=== PATIENT | female | born 1950 | race Caucasian/White ===

== ENCOUNTER → 2016-04-19 | Outpatient (CLI) | payer SELFPAY ==
--- NOTE | 2016-04-19 17:49 | DI ---
History: Right hip pain. Three-view study. Prior examination: None. Findings: Degenerative changes L4-5 and L5-S1 principally on the left side. Pelvic ring is intact Limited acetabular coverage in size. Medially, near the fovea, there appears to be close proximity of the femoral head relative to the acetabulum with borderline protrusio on the right side. Similarly o n the left side, the bone is in close proximity to the acetabulum on the medial aspect. Superiorly, t he joint space is fairly well preserved. There are marginal osteophytes present on the right side mor e so than on the left. Impression: While there are bilateral degenerative changes comment more evident on the right side. Cl ose proximity of the femoral head relative to the acetabular margins medially. Limited acetabular cov erage seen bilaterally Fairly advanced degenerative change L4-5 L5-S1 with left-sided marginal osteophytes
--- NOTE | 2016-04-19 17:49 | DI ---
History: Low back and right hip pain. Procedure: Three-view study. Findings: Some degenerative changes noted at T11-T12 L3-L4 and L4-L5 particularly. Spondylosis and na rrowing present. Surgical clips right upper quadrant of the abdomen. Lumbar facet hypertrophy noted principally from L2 down to S1. Impression: Fairly dense lumbar facet hypertrophy from L2-S1. Advanced degenerative disc disease as mentioned above. Prior right upper quadrant abdominal surgery.
== END ==
LOC: ORTHO 11:10
PROVIDERS: ATTEND Orthopaedic Surgery
DX: M25.551 Pain in right hip (principal); M16.11 Unilateral primary osteoarthritis, right hip; M47.816 Spondylosis without myelopathy or radiculopathy, lumbar region
CPT/HCPCS: 72100; 73502

== ENCOUNTER → 2016-06-07 | Outpatient (CLI) | payer OTHER ==
[2016-06-07 13:00] LABS: BILIRUBIN,URINE NEGATIVE (NEG); CLARITY,URINE CLEAR (CLEAR); GLUCOSE, URINE (UA) NEGATIVE (NEG); LEUKOCYTE ESTERASE ,URINE NEGATIVE (NEG); NITRATE,URINE NEGATIVE (NEG); OCCULT BLOOD,URINE NEGATIVE (NEG); PROTEIN,URINE NEGATIVE (NEG); UROBILINOGEN,URINE 0.2 mg/dL (0.2)
[2016-06-07 13:23] LABS: URINE SAMPLE TYPE VOIDED SPECIMEN
[2016-06-07 13:25] LABS: RBC,URINE 0 /hpf; SQUAMOUS EPITHELIAL CELL,UR RARE; WBC,URINE 0
== END ==
LOC: LAB 12:12
PROVIDERS: ATTEND Orthopaedic Surgery
DX: M16.11 Unilateral primary osteoarthritis, right hip (principal)
CPT/HCPCS: 36415; 81001; 87641; 99213; G0463; 86850; 86900; 86901; 86922

== ENCOUNTER 2016-06-08 05:48 | Inpatient (IN) | payer OTHER ==
[2016-06-08] MEDS ORDERED: ceFAZolin Inj 2gm (Premix) 0 ML IV ONE (05:57)
[2016-06-08] MEDS ORDERED: Lactated Ringers 1,000 ML PRIMARY IV ONE ×3 (05:57→10:26)
[2016-06-08] MEDS ORDERED: LIDOCAINE W/ SODIUM BICARB 0.5 ML SYR ONE (05:57)
[2016-06-08] MEDS ORDERED: Sodium Chloride 0.9% 500 ML ONE ×2 (06:34→11:27)
[2016-06-08] MEDS ORDERED: Sodium Chloride 0.9% 2,000 ML ONE (06:34)
[2016-06-08] MEDS ORDERED: HEPARIN 10,000 UNIT/1 ML ONE (06:38)
[2016-06-08] MEDS ORDERED: Bacteriostatic NaCl Inj 30ml Vial ONE (06:38)
[2016-06-08] MEDS ORDERED: Sodium Chloride 0.9% vial 10 ML ONE (06:38)
[2016-06-08] MEDS ORDERED: Gentamicin Inj 40 MG/ML VIAL ONE (06:38)
[2016-06-08] MEDS ORDERED: BUPivacaine Liposome/PF (Exparel) Inj 20ml vial INFIL ONE (06:38)
[2016-06-08] MEDS ORDERED: Ketorolac Inj 30 MG, Morphine Inj 5 MG, BUPivacaine Inj 0.25% PF 150 MG SPLASH ONE ×6 (07:15→13:39)
[2016-06-08] MEDS ORDERED: MIDAZOLAM 5 MG/1 ML ONE (07:22)
[2016-06-08] MEDS ORDERED: fentaNYL Inj 250 MCG/5 ML VIAL ONE (07:23)
[2016-06-08] MEDS ORDERED: MORPHINE SULFATE/PF 10 MG/10 ML AMPULE ONE (07:23)
[2016-06-08] MEDS ORDERED: BUPIVACAINE SPINAL 7.5 MG/1 ML - 2 ML IV ONE (07:23)
[2016-06-08] MEDS ORDERED: Clindamycin 900mg (Premix) 50 ML IV ONE (07:32)
[2016-06-08] MEDS ORDERED: TRANEXAMIC ACID 1,000 MG / 10 ML VIAL ONE (08:00)
[2016-06-08] MEDS ORDERED: Sodium Chloride 0.9% 200 ML IV ONE (08:00)
[2016-06-08] MEDS ORDERED: HYDROmorphone 2 MG/1 ML IVP PRN ×2 (08:54→13:39)
[2016-06-08] MEDS ORDERED: NORMAL SALINE 10 ML SYRINGE FLUSH IVP PRN ×3 (08:54→13:39)
[2016-06-08] MEDS ORDERED: ONDANSETRON 4 MG/2 ML VIAL IVP PRN ×3 (08:54→13:39)
--- NOTE | 2016-06-08 08:54 | CRNA.PROCE ---
Central Neuraxis Block Placemt - - Type of Block: Subarachnoid, Epidural Reason for Block: Surgical Moniters Used During Block: EKG, SPO2, NIBP Sedation Used - Enter Amount Used in Comment Field: Midazolam (mg): Yes (3), Fentanyl (mcg): Yes (100) Skin Prep Used: ChloroPrep Draped: Yes Skin Infiltration - Enter Amount Used in Comment Field: 1% Xylocaine (mL): Yes ( skin wheal) Spinal Needle Used: 18 Hustead 80 mm Local Anesthetic - Enter Amount Used in Comment Field: 0.75 % Bupivacaine with Dextrose (ml): Yes (15mg), 1.5 % Xylocaine with Epinephrine 1:200,000 (mL): Yes (5ml) Additive Used - Enter Amount Used in Comment Field: Preservative Free Morphine ( mg): Yes (.15mg) Number of Centimeters Catheter Threaded: 4 Bioclusive Dressing Applied: Yes - - Additional Details: CSE 27GA spinal abraham passed through the 18GA touhy with pos CSF. 15mg of .75% bupivicaine and .15mg duramorph injected with birefringence noted
[2016-06-08] MEDS ORDERED: Lactated Ringers 1,000 ML PRIMARY IV SCH ×2 (09:00→13:39)
[2016-06-08] MEDS ORDERED: LIDOCAINE MPF 2% - 5 ML (20 MG/1 ML) ONE ×2 (09:29→10:52)
[2016-06-08] MEDS ORDERED: ePHEDrine Inj 50 MG/ML AMP ONE (09:44)
--- NOTE | 2016-06-08 13:34 | CONSULT ---
Consult Note - Consult Reason for Consult: PostOp Consulation : Ortho Requesting Physician: Magdalena Primary Care Provider: UNKNOWN UNKNOWN - History of Present Illness History of Present Illness: This is a very nice 66-year-old female with right hip pain was admitted by Dr. Nichols for right a [facility] hospitalist service was consulted for medical issues consistent of hypertension and hypothyroidism patient is now postop she has no complaints follows commands and is doing well Past Medical History Medical History: Hypertension, hypothyroidism Surgical History: Cholecystectomy, tonsillectomy, tubal ligation Tobacco Use: Never Smoker Substance Use Type: None Alcohol Use: None Review of Systems - Review of Systems All Systems: Reviewed & No Additional Complaints Except as Stated - Respiratory Respiratory: DENIES: Negative System Review, Cough, Sputum, Dyspnea At Rest, Dyspnea with Exertion, Pleuritic Pain, Hemoptysis, Wheezing, Other, See HPI - Gastrointestinal Gastrointestinal / Abdominal: DENIES: Negative System Review, Nausea, Vomiting, Diarrhea, Constipation, Abdominal Pain, Bloody Stool, Poor Appetite, Heartburn, Regurgitation, Bloating, Lactose Intolerance, Melena, Bright Red Blood Per Rectum, Other, See HPI - Genitourinary Genitourinary: DENIES: Negative System Review, Pain, Burning, Hematuria, Incontinence, Urgency, Hesitant Stream, Decreased Stream, Nocutria, Discharge, Sexual Dyfunction, Other, See HPI Medication / Allergies Home Medications: Home Medications Medication Instructions Recorded Confirmed Type Levothyroxine Sodium 1 tab PO DAILY tab 04/19/16 06/08/16 History Hydrochlorothiazide 1 cap PO DAILY cap 06/07/16 06/08/16 History Allergies/Adverse Reactions: Allergies Allergy/AdvReac Type Severity Reaction Status Date / Time cephalexin Allergy Intermediate RASH Verified 06/08/16 06:24 Sulfa (Sulfonamide Allergy Intermediate RASH Verified 06/08/16 06:24 Antibiotics) shell fish Allergy Severe Anaphylaxis Uncoded 04/19/16 10:32 Exam - Vitals Vital Signs: Vital Signs Temperature 97.3 F Temperature Source Temporal Artery Scan Pulse Rate 74 Respiratory Rate 16 Blood Pressure 146/90 Oxygen Delivery Method Room Air Height 5 ft 9 in Weight 87.09 kg - General General Appearance: POSITIVE: No Acute Distress, Cooperative - Head Head Exam: POSITIVE: Normocephalic, Atraumatic - Eye Eye Exam: POSITIVE: PERRL, EOMI - Neck Neck Exam: POSITIVE: Normal Inspection - Respiratory Respiratory Exam: POSITIVE: Clear to Auscultation - Bilaterally, Breathing Non Labored, Normal To Percussion - Cardiovascular Cardiovascular Exam: POSITIVE: RRR, No Murmur, No Clicks, No Gallops - GI/Abdominal GI/Abdominal Exam: POSITIVE: Normal Bowel Sounds, Non Tender, Soft - Extremities Additional Extremities Exam Details: Postop right hip replacement - Neurological Neurological Exam: POSITIVE: Alert, Oriented x 3, CN II-XII Intact Assessment and Plan - Patient Problems (1) Hypertension Current Visit: Yes Status: Acute Comment: Hold hydrochlorothiazide at present check labs (2) Hypothyroidism Current Visit: Yes Status: Acute Comment: Continue replacement (3) Status post right hip replacement Current Visit: Yes Status: Acute Comment: The further Dr. Nichols for anticoagulation and pain control and PT OT orders - Assessment / Plan Additional Assessment/Plan Details: case discussed with family and nursing
[2016-06-08] MEDS ORDERED: Prochlorperazine Tab 10 MG TAB PO PRN (13:39)
[2016-06-08] MEDS ORDERED: Ondansetron ODT Tab 8 MG TAB PO PRN (13:39)
[2016-06-08] MEDS ORDERED: MORPHINE SULFATE 2 MG/1 ML IVP PRN (13:39)
[2016-06-08] MEDS ORDERED: BISACODYL 10 MG SUPPOSITORY RECTAL PRN (13:39)
[2016-06-08] MEDS ORDERED: CALCIUM CARBONATE 500 MG (TUMS) CHEWABLE TABLET PO PRN (13:39)
[2016-06-08] MEDS ORDERED: IBUPROFEN 400 MG TABLET PO PRN (13:39)
[2016-06-08] MEDS ORDERED: diphenhydrAMINE 25 MG CAPSULE PO PRN (13:39)
[2016-06-08] MEDS ORDERED: BISACODYL 5 MG TABLET PO PRN (13:39)
[2016-06-08] MEDS ORDERED: ACETAMINOPHEN 325 MG TABLET PO PRN (13:39)
[2016-06-08] MEDS ORDERED: MAG HYDROX/AL HYDROX/SIMETH 30 ML SUSP PO PRN (13:39)
--- NOTE | 2016-06-08 13:47 | EKG ---
[address] [address] Measurements Intervals [place] Rate: 66 P: 14 NE: 176 QRS: 73 QRSD: 102 T: 39 QT: 432 QTc: 445 Interpretive Statements SINUS RHYTHM NONSPECIFIC T-WAVE ABNORMALITY No previous ECG available for comparison Electronically Signed On 06-08-16 15:37:19 MST by Jose Rolon [email or web address]
[2016-06-08] MEDS ORDERED: MORPHINE SULFATE 4 MG/1 ML IV PRN (14:06)
[2016-06-08] MEDS ORDERED: MORPHINE SULFATE 10 MG/1 ML IV PRN (14:06)
[2016-06-08] MEDS ORDERED: MORPHINE SULFATE 2 MG/1 ML IV PRN (14:06)
[2016-06-08] MEDS: Lactated Ringers 1,000 ML PRIMARY IV SCH (15:20)
--- NOTE | 2016-06-08 16:45 | DI ---
AP PELVIS AND RIGHT HIP, 06/08/2016 11:31 AM: Clinical History: Status post right total hip replacement. Osteoarthritis. Previous Exam: 04/19/2016. An AP pelvis with AP and lateral views of the replaced hip are submitted. The patient is status post right total hip replacement. The prosthetic joint articulates normally. A drain tube is in place. Reading: Status post right total hip replacement. The prosthetic joint articulates normally.
[2016-06-08] MEDS: Clindamycin 900mg (Premix) 900 MG in Dextrose 1 BAG IV SCH ×2 (16:50→21:37)
[2016-06-08 17:49] LABS: BASOPHILS # (AUTO) 0.02 10*3/UL; BASOPHILS % (AUTO) 0.2 % (0-1); EOSINOPHILS % (AUTO) 0 % (0-8); HEMATOCRIT 33.4 % (37.0-47.0); HEMOGLOBIN 10.7 g/dL (12.0-16.0); IMM GRAN % (AUTO) 0.3 % (0-5); IMM GRAN# (AUTO) 0.03 10*3/UL; LYMPHOCYTES # (AUTO) 0.62 10*3/uL; LYMPHOCYTES % (AUTO) 6.7 % (10-50); MEAN CORPUSCULAR HEMOGLOBIN 28.8 PG (27-31); MONOCYTES # (AUTO) 0.72 10*3/UL (0.3-0.8); MONOCYTES % (AUTO) 7.8 % (5-15); NEUTROPHILS # (AUTO) 7.87 10*3/UL; RDW COEFFICIENT OF VARIATION 14.5 % (11.5-14.5); RED BLOOD COUNT 3.72 10^6/uL (4.20-5.40); WHITE BLOOD COUNT 9.26 10^3/uL (4.8-10.8)
--- NOTE | 2016-06-08 17:51 | EKG ---
[address] [address] Measurements Intervals [place] Rate: 68 P: 27 RI: 170 QRS: 68 QRSD: 97 T: 88 QT: 430 QTc: 447 Interpretive Statements SINUS RHYTHM NONSPECIFIC ST & T-WAVE ABNORMALITY Compared to ECG 06/08/2016 13:47:48 No significant changes Electronically Signed On 06-09-16 14:00:34 MST by Jose Rolon [email or web address]
[2016-06-08 17:58] LABS: ASPARTATE AMINO TRANSFERASE 49 IU/L (8-39); BILIRUBIN,TOTAL 0.8 mg/dL (0.3-1.2); BLOOD UREA NITROGEN 14 mg/dL (7-22); BUN/CREATININE RATIO 23.33 (6-20); CALCIUM 8.5 mg/dL (8.7-10.7); CHLORIDE 104 meq/L (98-112); CREATININE 0.6 mg/dL (0.50-1.20); EST GLOMERULAR FILTRATION > 60 (>60 ml/min/1.73m(2)); GLUCOSE 115 mg/dL (78-110); SODIUM 139 meq/L (135-145); TOTAL PROTEIN 5.8 g/dL (6.1-8.0)
[2016-06-08 17:59] LABS: PLATELET MORPHOLOGY COMMENT NORMAL MORPHOLOGY (NORM)
--- NOTE | 2016-06-08 19:20 | ORTHO.PROG ---
Last Taken Vital Signs: Vital Signs - Last Taken Temperature 97.2 F 06/08/16 16:01 Pulse Rate 73 06/08/16 16:01 Respiratory Rate 18 06/08/16 16:01 Blood Pressure 149/79 06/08/16 16:01 Pulse Ox 100 06/08/16 16:01 Subjective: Patient notes that her pain is well-controlled and stood up with therapy today. Objective: Intake and Output - 8hrs 06/07/16 06/08/16 06/08/16 06/08/16 21:59 05:59 13:59 21:59 Intake: IV 5050 305 Intake Oral Amount 300 OrthoPat 100 Output: Output, Drainage Amount 80 RIGHT HIP 80 Output, Urinary Catheter 200 Amount Output, Urine Amount 145 Output, Estimated Blood 350 Loss Amount Other: Percent Meal Consumed 100% Weight 87.09 kg Weight Measurement Method Standing Scale Vital Signs (24 hrs) Temp Pulse Pulse Resp BP BP Pulse Ox 06/08/16 16:01 97.2 F 73 18 149/79 100 06/08/16 15:30 97.4 F 69 17 143/81 97 06/08/16 15:07 96 06/08/16 15:01 97.1 F 69 18 153/77 94 06/08/16 14:27 97.5 F 76 18 156/98 98 06/08/16 14:15 97.4 F 71 16 148/84 98 06/08/16 14:00 96.6 F L 72 18 162/80 97 06/08/16 13:45 96.6 F L 72 20 167/87 97 06/08/16 13:40 97.3 F 70 16 167/90 96 06/08/16 13:30 97.3 F 70 16 167/90 96 06/08/16 13:15 96.9 F 63 12 166/80 06/08/16 13:05 65 25 H 151/78 06/08/16 12:50 64 13 143/74 06/08/16 12:45 68 25 H 159/78 06/08/16 12:35 97.1 F 67 17 152/87 06/08/16 12:20 59 L 14 118/87 06/08/16 12:15 66 12 124/71 06/08/16 12:10 96.8 F 62 16 104/63 06/08/16 12:05 64 16 110/69 06/08/16 12:00 62 16 106/64 06/08/16 11:55 69 27 H 111/66 06/08/16 11:49 97.3 F 64 9 L 99/66 06/08/16 06:35 97.3 F 74 16 146/90 Dressing is clean and dry drain is in place and the suction dressing is also in place. Neurovascularly intact with good motor of the foot and ankle and toes. Good pulses and brisk refill Assessment: Right anterior total hip replacement doing well Plan: Patient will work with physical therapy and occupational therapy Anticoagulation with Xarelto and pneumatic sequentials Pain control both oral and IV.
[2016-06-08] MEDS: DOCUSATE 100 MG CAPSULE PO SCH (21:38)
[2016-06-09] MEDS: HYDROcodone-APAP 7.5 MG-325 MG TABLET PO PRN ×4 (01:13→21:48)
[2016-06-09] MEDS: Lactated Ringers 1,000 ML PRIMARY IV SCH (02:51)
[2016-06-09] MEDS: Clindamycin 900mg (Premix) 900 MG in Dextrose 1 BAG IV SCH (04:15)
[2016-06-09] MEDS: LEVOTHYROXINE 75 MCG TABLET PO SCH ×2 (05:30→05:34)
[2016-06-09 06:10] LABS: BASOPHILS # (AUTO) 0.01 10*3/UL; BASOPHILS % (AUTO) 0.2 % (0-1); EOSINOPHILS % (AUTO) 0.7 % (0-8); HEMATOCRIT 29.7 % (37.0-47.0); HEMOGLOBIN 9.4 g/dL (12.0-16.0); IMM GRAN % (AUTO) 0 % (0-5); IMM GRAN# (AUTO) 0 10*3/UL; LYMPHOCYTES # (AUTO) 0.96 10*3/uL; LYMPHOCYTES % (AUTO) 21.1 % (10-50); MEAN CORPUSCULAR HEMOGLOBIN 28.5 PG (27-31); MEAN CORPUSCULAR HGB CONC 31.6 g/dL (33-37); MEAN PLATELET VOLUME 10.5 FL (7.4-12.2); MONOCYTES # (AUTO) 0.69 10*3/UL (0.3-0.8); MONOCYTES % (AUTO) 15.2 % (5-15); NEUTROPHILS # (AUTO) 2.86 10*3/UL; NEUTROPHILS % (AUTO) 62.8 % (50-80); RDW COEFFICIENT OF VARIATION 14.6 % (11.5-14.5); WHITE BLOOD COUNT 4.55 10^3/uL (4.8-10.8)
[2016-06-09 06:12] LABS: PLATELET MORPHOLOGY COMMENT NORMAL MORPHOLOGY (NORM)
[2016-06-09 06:24] LABS: ASPARTATE AMINO TRANSFERASE 32 IU/L (8-39); BILIRUBIN,TOTAL 0.8 mg/dL (0.3-1.2); BLOOD UREA NITROGEN 11 mg/dL (7-22); BUN/CREATININE RATIO 18.33 (6-20); CALCIUM 8.1 mg/dL (8.7-10.7); CHLORIDE 103 meq/L (98-112); CREATININE 0.6 mg/dL (0.50-1.20); EST GLOMERULAR FILTRATION > 60 (>60 ml/min/1.73m(2)); GLUCOSE 89 mg/dL (78-110); SODIUM 136 meq/L (135-145); TOTAL PROTEIN 5.3 g/dL (6.1-8.0)
--- NOTE | 2016-06-09 07:47 | ORTHO.PROG ---
Last Taken Vital Signs: Vital Signs - Last Taken Temperature 98.4 F 06/09/16 04:32 Pulse Rate 76 06/09/16 04:32 Respiratory Rate 18 06/09/16 04:32 Blood Pressure 140/46 06/09/16 04:32 Pulse Ox 95 06/09/16 04:32 Subjective: Patient is doing well this morning and is ready to start physical therapy. Objective: Intake and Output - 8hrs 06/08/16 06/08/16 06/09/16 06/09/16 13:59 21:59 05:59 13:59 Intake: IV 5050 305 1254 Intake Oral Amount 600 750 OrthoPat 100 Output: Output, Drainage Amount 80 40 RIGHT HIP 80 40 Output, Urinary Catheter 200 650 Amount Output, Urine Amount 145 Output, Estimated Blood 350 Loss Amount Other: Percent Meal Consumed 100% Weight 87.09 kg Weight Measurement Method Standing Scale Vital Signs (24 hrs) Temp Pulse Pulse Pulse Resp BP BP 06/09/16 07:43 97.9 F 79 16 117/60 06/09/16 04:32 98.4 F 76 18 140/46 06/09/16 00:21 97.5 F 65 16 145/68 06/08/16 20:37 98.0 F 61 18 136/62 06/08/16 16:01 97.2 F 73 18 06/08/16 15:30 97.4 F 69 17 06/08/16 15:07 06/08/16 15:01 97.1 F 69 18 06/08/16 14:27 97.5 F 76 18 06/08/16 14:15 97.4 F 71 16 06/08/16 14:00 96.6 F L 72 18 06/08/16 13:45 96.6 F L 72 20 06/08/16 13:40 97.3 F 70 16 06/08/16 13:30 97.3 F 70 16 06/08/16 13:15 96.9 F 63 12 166/80 06/08/16 13:05 65 25 H 151/78 06/08/16 12:50 64 13 143/74 06/08/16 12:45 68 25 H 159/78 06/08/16 12:35 97.1 F 67 17 152/87 06/08/16 12:20 59 L 14 118/87 06/08/16 12:15 66 12 124/71 02/28/17 12:10 96.8 F 62 16 104/63 06/08/16 12:05 64 16 110/69 06/08/16 12:00 62 16 106/64 06/08/16 11:55 69 27 H 111/66 06/08/16 11:49 97.3 F 64 9 L 99/66 BP Pulse Ox 06/09/16 07:43 92 06/09/16 04:32 95 06/09/16 00:21 98 06/08/16 20:37 98 06/08/16 16:01 149/79 100 06/08/16 15:30 143/81 97 06/08/16 15:07 96 06/08/16 15:01 153/77 94 06/08/16 14:27 156/98 98 06/08/16 14:15 148/84 98 06/08/16 14:00 162/80 97 06/08/16 13:45 167/87 97 06/08/16 13:40 167/90 96 06/08/16 13:30 167/90 96 06/08/16 13:15 06/08/16 13:05 06/08/16 12:50 06/08/16 12:45 06/08/16 12:35 06/08/16 12:20 06/08/16 12:15 06/08/16 12:10 06/08/16 12:05 06/08/16 12:00 06/08/16 11:55 06/08/16 11:49 Laboratory Results 06/08/16 06/08/16 06/09/16 Range/Units 13:58 17:35 05:49 WBC 9.26 4.55 L (4.8-10.8) 10^3/uL RBC 3.72 L 3.30 L (4.20-5.40) 10^6/uL Hgb 10.7 L 9.4 L (12.0-16.0) g/dL Hct 33.4 L 29.7 L (37.0-47.0) % MCV 89.8 90.0 (81-99) FL MCH 28.8 28.5 (27-31) PG MCHC 32.0 L 31.6 L (33-37) g/dL RDW Std Deviation 46.2 46.5 (39-50) fL RDW Coeff of Emmy 14.5 14.6 H (11.5-14.5) % Plt Count 185 160 (140-350) 10*3/uL MPV 10.0 10.5 (7.4-12.2) FL Immature Gran % (Auto) 0.3 0 (0-5) % Neut % (Auto) 85.0 H 62.8 (50-80) % Lymph % (Auto) 6.7 L 21.1 (10-50) % [place] % (Auto) 7.8 15.2 H (5-15) % Eos % (Auto) 0 0.7 (0-8) % Baso % (Auto) 0.2 0.2 (0-1) % Immature Gran # (Auto) 0.03 0 10*3/UL Neut # (Auto) 7.87 2.86 10*3/UL Lymph # (Auto) 0.62 0.96 10*3/uL [place] # (Auto) 0.72 0.69 (0.3-0.8) 10*3/UL Eos # (Auto) 0 0.03 10*3/UL Baso # (Auto) 0.02 0.01 10*3/UL WBC Morphology Comment Normal morphology Normal morphology (NORM) Plt Morphology Comment Normal morphology Normal morphology (NORM) RBC Morph Comment Normal morphology Normal morphology (NORM) Sodium 139 136 (135-145) meq/L Potassium 4.0 4.0 (3.8-5.2) meq/L Chloride 104 103 (98-112) meq/L Carbon Dioxide 26 27 (23-33) meq/L Anion Gap 9 6 (5-20) BUN 14 11 (7-22) mg/dL Creatinine 0.6 0.6 (0.50-1.20) mg/dL Estimated GFR > 60 > 60 (>60 ml/min/1.73m(2)) BUN/Creatinine Ratio 23.33 H 18.33 (6-20) Glucose 115 H 89 (78-110) mg/dL Calculated Osmolality 289.0 279.0 (267-292) mOsm/kg Calcium 8.5 L 8.1 L (8.7-10.7) mg/dL Total Bilirubin 0.8 0.8 (0.3-1.2) mg/dL AST 49 H 32 (8-39) IU/L ALT 40 35 (9-52) IU/L Alkaline Phosphatase 71 55 (38-126) IU/L Troponin I < 0.012 (< 0.040) ng/mL Total Protein 5.8 L 5.3 L (6.1-8.0) g/dL Albumin 3.3 L 2.8 L (3.5-4.8) g/dL Globulin 2.5 2.5 (2.50-4.10) g/dL Albumin/Globulin Ratio 1.30 1.10 L (1.3-2.0) mg/g Patient's motor and sensory exam is intact there is no marked swelling the drain was removed dressing is in place. Patient with good pulses brisk refill good motion foot and ankle toes. Assessment: Right total hip replacement Anemia Plan: Pain control both oral and IV available DVT prophylaxis we will be using other oral medications Xarelto Anemia we have autologous units available if needed. We'll continue to follow her along.
[2016-06-09] MEDS ORDERED: Rivaroxaban Tab 10 MG TAB PO SCH (09:00)
[2016-06-09] MEDS ORDERED: HYDROCHLOROTHIAZIDE 12.5 MG CAPSULE PO SCH (09:00)
[2016-06-09] MEDS: DOCUSATE 100 MG CAPSULE PO SCH ×2 (09:34→21:48)
--- NOTE | 2016-06-09 09:49 | CRNA.PROGR ---
Anesthesia Note Anesthesia Progress Note: Post Anesthesia Note Pt is sitting up in bed, states that her pain is well under control. She has been tolerating a regular diet. Had one episode of N/V one time yesterday. She denies any residual problems with the SAB/Epidural. Current VSS. Vital Signs (Last 8 hours) Temp Pulse Resp BP Pulse Ox 06/09/16 07:43 97.9 F 79 16 117/60 92 06/09/16 04:32 98.4 F 76 18 140/46 95
[2016-06-09] MEDS ORDERED: Rivaroxaban Tab 10 MG TAB PO ONE (10:30)
--- NOTE | 2016-06-09 11:34 | PDOC(PROG) ---
Interval History: Patient has no complaints eating well no chest pain nausea or vomiting Objective : Data - Labs CBC and BMP: 06/09/16 05:49 06/09/16 05:49 Labs - Last 24 Hours: Laboratory Results 06/08/16 06/08/16 06/09/16 Range/Units 13:58 17:35 05:49 WBC 9.26 4.55 L (4.8-10.8) 10^3/uL RBC 3.72 L 3.30 L (4.20-5.40) 10^6/uL Hgb 10.7 L 9.4 L (12.0-16.0) g/dL Hct 33.4 L 29.7 L (37.0-47.0) % MCV 89.8 90.0 (81-99) FL MCH 28.8 28.5 (27-31) PG MCHC 32.0 L 31.6 L (33-37) g/dL RDW Std Deviation 46.2 46.5 (39-50) fL RDW Coeff of Emmy 14.5 14.6 H (11.5-14.5) % Plt Count 185 160 (140-350) 10*3/uL MPV 10.0 10.5 (7.4-12.2) FL Immature Gran % (Auto) 0.3 0 (0-5) % Neut % (Auto) 85.0 H 62.8 (50-80) % Lymph % (Auto) 6.7 L 21.1 (10-50) % [place] % (Auto) 7.8 15.2 H (5-15) % Eos % (Auto) 0 0.7 (0-8) % Baso % (Auto) 0.2 0.2 (0-1) % Immature Gran # (Auto) 0.03 0 10*3/UL Neut # (Auto) 7.87 2.86 10*3/UL Lymph # (Auto) 0.62 0.96 10*3/uL [place] # (Auto) 0.72 0.69 (0.3-0.8) 10*3/UL Eos # (Auto) 0 0.03 10*3/UL Baso # (Auto) 0.02 0.01 10*3/UL WBC Morphology Comment Normal morphology Normal morphology (NORM) Plt Morphology Comment Normal morphology Normal morphology (NORM) RBC Morph Comment Normal morphology Normal morphology (NORM) Sodium 139 136 (135-145) meq/L Potassium 4.0 4.0 (3.8-5.2) meq/L Chloride 104 103 (98-112) meq/L Carbon Dioxide 26 27 (23-33) meq/L Anion Gap 9 6 (5-20) BUN 14 11 (7-22) mg/dL Creatinine 0.6 0.6 (0.50-1.20) mg/dL Estimated GFR > 60 > 60 (>60 ml/min/1.73m(2)) BUN/Creatinine Ratio 23.33 H 18.33 (6-20) Glucose 115 H 89 (78-110) mg/dL Calculated Osmolality 289.0 279.0 (267-292) mOsm/kg Calcium 8.5 L 8.1 L (8.7-10.7) mg/dL Total Bilirubin 0.8 0.8 (0.3-1.2) mg/dL AST 49 H 32 (8-39) IU/L ALT 40 35 (9-52) IU/L Alkaline Phosphatase 71 55 (38-126) IU/L Troponin I < 0.012 < 0.012 (< 0.040) ng/mL Total Protein 5.8 L 5.3 L (6.1-8.0) g/dL Albumin 3.3 L 2.8 L (3.5-4.8) g/dL Globulin 2.5 2.5 (2.50-4.10) g/dL Albumin/Globulin Ratio 1.30 1.10 L (1.3-2.0) mg/g Objective : Exam - General General Appearance: Cooperative - Neck Neck Exam: Normal Inspection - Respiratory Respiratory Exam: Clear to Auscultation - Bilaterally, Breathing Non Labored, Normal To Percussion - Cardiovascular Cardiovascular Exam: RRR, No Murmur, No Clicks, No Gallops - GI/Abdominal GI/Abdominal Exam: Normal Bowel Sounds, Non Tender, Non Distended, Soft - Extremities Extremities Exam: No Clubbing Present, No Edema Present, No Cyanosis Present - Neurological Neurological Exam: Alert, Oriented x 3, CN II-XII Intact, No Facial Droop Assessment and Plan - Patient Problems (1) Hypertension Current Visit: Yes Status: Acute Comment: Stable 117/60 continue to hold hydrochlorothiazide (2) Hypothyroidism Current Visit: Yes Status: Acute Comment: Continue replacement (3) Status post right hip replacement Current Visit: Yes Status: Acute Comment: Defer Dr. Nichols patient is onxarelto
--- NOTE | 2016-06-09 16:34 | PT.PROG ---
Progress Note Progress Note: S. Patient stated that she is feeling good this morning and would like to go for a walk. O. Patient ambulated 120 feet to the end of the peter and back to her room, She was left in her chair with alarm and call light. A. Patient tolerated ambulation very well and reported that she has very little pain at this time. Patient would continue to benefit from skilled therapy at this time. P. Continue POC.
--- NOTE | 2016-06-09 17:02 | PT.PROG ---
Progress Note Progress Note: S. Patient stated that she is a little stiff this afternoon after sitting in the chair. O. Patient ambulated 175 feet to the therapy gym where she had heat and performed exercises in the form of; heel slides, quad sets, glut sets, ankle pumps, short arc quads, seated long arc quads, sit to stands all x 10 patient ambulated 30 feet then was wheeled to her room where she was left in a chair with alarm and call light. A. Patient tolerated activity very well this afternoon, she required mod assist with bed mobility and transfers however was able to perform all exercises. Patient would continue to benefit from skilled therapy. P. Continue POC.
[2016-06-10] MEDS: HYDROcodone-APAP 7.5 MG-325 MG TABLET PO PRN ×4 (03:42→20:21)
[2016-06-10] MEDS: LEVOTHYROXINE 150 MCG PO SCH (05:43)
[2016-06-10 06:27] LABS: HEMATOCRIT 32.4 % (37.0-47.0); HEMOGLOBIN 10.5 g/dL (12.0-16.0); MEAN CORPUSCULAR HEMOGLOBIN 29.1 PG (27-31); MEAN CORPUSCULAR HGB CONC 32.4 g/dL (33-37); MEAN PLATELET VOLUME 10.3 FL (7.4-12.2); RDW COEFFICIENT OF VARIATION 14.7 % (11.5-14.5); RED BLOOD COUNT 3.61 10^6/uL (4.20-5.40); WHITE BLOOD COUNT 6.23 10^3/uL (4.8-10.8)
[2016-06-10 06:36] LABS: BLOOD UREA NITROGEN 7 mg/dL (7-22); CALCIUM 8.9 mg/dL (8.7-10.7); CHLORIDE 103 meq/L (98-112); CREATININE 0.7 mg/dL (0.50-1.20); EST GLOMERULAR FILTRATION > 60 (>60 ml/min/1.73m(2)); GLUCOSE 98 mg/dL (78-110); POTASSIUM 3.8 meq/L (3.8-5.2); SODIUM 139 meq/L (135-145)
[2016-06-10] MEDS: HYDROCHLOROTHIAZIDE 12.5 MG PO SCH (07:21)
[2016-06-10] MEDS: Rivaroxaban Tab 10 MG TAB PO SCH (08:03)
[2016-06-10] MEDS: DOCUSATE 100 MG CAPSULE PO SCH ×2 (08:03→20:21)
--- NOTE | 2016-06-10 10:58 | PDOC(PROG) ---
Interval History: Patient is doing great and has no complaints specifically no chest pain nausea or vomiting or shortness of breath she is doing pretty well with physical therapy she tells me Objective : Data - Labs CBC and BMP: 06/10/16 05:54 06/10/16 05:54 Labs - Last 24 Hours: Laboratory Results 06/10/16 Range/Units 05:54 WBC 6.23 (4.8-10.8) 10^3/uL RBC 3.61 L (4.20-5.40) 10^6/uL Hgb 10.5 L (12.0-16.0) g/dL Hct 32.4 L (37.0-47.0) % MCV 89.8 (81-99) FL MCH 29.1 (27-31) PG MCHC 32.4 L (33-37) g/dL RDW Std Deviation 46.8 (39-50) fL RDW Coeff of Emmy 14.7 H (11.5-14.5) % Plt Count 203 (140-350) 10*3/uL MPV 10.3 (7.4-12.2) FL Sodium 139 (135-145) meq/L Potassium 3.8 (3.8-5.2) meq/L Chloride 103 (98-112) meq/L Carbon Dioxide 28 (23-33) meq/L Anion Gap 8 (5-20) BUN 7 (7-22) mg/dL Creatinine 0.7 (0.50-1.20) mg/dL Estimated GFR > 60 (>60 ml/min/1.73m(2)) BUN/Creatinine Ratio 10.00 (6-20) Glucose 98 (78-110) mg/dL Calculated Osmolality 285.0 (267-292) mOsm/kg Calcium 8.9 (8.7-10.7) mg/dL Objective : Exam - Respiratory Respiratory Exam: Clear to Auscultation - Bilaterally, Breathing Non Labored, Normal To Percussion - Cardiovascular Cardiovascular Exam: RRR, No Murmur, No Clicks - GI/Abdominal GI/Abdominal Exam: Non Tender, Non Distended, Soft - Extremities Extremities Exam: No Clubbing Present, No Edema Present, No Cyanosis Present - Neurological Neurological Exam: Alert, Oriented x 3, CN II-XII Intact - Psychiatric Psychiatric Exam: Normal Affect, Normal Mood Assessment and Plan - Patient Problems (1) Hypertension Current Visit: Yes Status: Acute Comment: Stable at present time may resume her home meds (2) Hypothyroidism Current Visit: Yes Status: Acute Comment: Continue replacement (3) Status post right hip replacement Current Visit: Yes Status: Acute Comment: For Dr. Nichols for anticoagulation and postop instructions
--- NOTE | 2016-06-10 14:01 | ORTHO.PROG ---
Last Taken Vital Signs: Vital Signs - Last Taken Temperature 97.8 F 06/10/16 12:51 Pulse Rate 86 06/10/16 12:51 Respiratory Rate 18 06/10/16 12:51 Blood Pressure 123/69 06/10/16 12:51 Pulse Ox 94 06/10/16 12:51 Subjective: The patient is doing well therapy what well she did stairs partially is going back this afternoon to work him more. Objective: Examination shows that the leg is clean and dry dressings in place the PREVINA suction dressing is working well and she has normal motor and sensory exam distally, very mild amount of swelling. No calf, popliteal, adductor hiatus pain. Intake and Output - 8hrs 06/09/16 06/10/16 06/10/16 06/10/16 21:59 05:59 13:59 21:59 Intake: Intake Oral Amount 700 500 980 Output: Output, Urinary Catheter 1150 Amount Output, Urine Amount 675 1125 950 Other: Percent Meal Consumed 100% Weight 90.174 kg Weight Measurement Method Standing Scale Laboratory Results 06/10/16 Range/Units 05:54 WBC 6.23 (4.8-10.8) 10^3/uL RBC 3.61 L (4.20-5.40) 10^6/uL Hgb 10.5 L (12.0-16.0) g/dL Hct 32.4 L (37.0-47.0) % MCV 89.8 (81-99) FL MCH 29.1 (27-31) PG MCHC 32.4 L (33-37) g/dL RDW Std Deviation 46.8 (39-50) fL RDW Coeff of Emmy 14.7 H (11.5-14.5) % Plt Count 203 (140-350) 10*3/uL MPV 10.3 (7.4-12.2) FL Sodium 139 (135-145) meq/L Potassium 3.8 (3.8-5.2) meq/L Chloride 103 (98-112) meq/L Carbon Dioxide 28 (23-33) meq/L Anion Gap 8 (5-20) BUN 7 (7-22) mg/dL Creatinine 0.7 (0.50-1.20) mg/dL Estimated GFR > 60 (>60 ml/min/1.73m(2)) BUN/Creatinine Ratio 10.00 (6-20) Glucose 98 (78-110) mg/dL Calculated Osmolality 285.0 (267-292) mOsm/kg Calcium 8.9 (8.7-10.7) mg/dL Vital Signs (24 hrs) Temp Pulse Pulse Resp BP BP Pulse Ox 06/10/16 12:51 97.8 F 86 18 123/69 94 06/10/16 06:56 98.4 F 96 18 121/63 92 06/10/16 04:06 98.4 F 93 20 173/85 92 06/10/16 00:06 98.2 F 93 20 154/70 91 06/09/16 20:42 98.7 F 77 20 155/65 93 06/09/16 19:00 82 20 06/09/16 17:00 98.1 F 82 18 129/48 92 Assessment: Patient status post right total hip replacement Anemia stable Plan: Continue with physical therapy and occupational therapy Ice to right hip as tolerated DVT prophylaxis with Xarelto Pain control doing well with oral medications
--- NOTE | 2016-06-10 14:12 | PT.PROG ---
Progress Note Progress Note: S. Patient stated that she is feeling good this morning. Patient states that she is a little worried about getting in and out of a car and her stairs. O. Patient ambulated 175 feet to the therapy gym where she had heat and performed exercises in the form of; heel slides, quad sets, ankle pumps, short arc quads, sit to stands, box step ups (#2 and #3 boxes) all x 10, nu-step x 10 minutes. Patient ambulated 175 feet back to her room where she was left in bed with alarm and call light. A. Patient tolerated exercises very well, she was able to perform box step ups with ease she is still a little concerned about getting into a car however we will attempt to simulate transfer in therapy this afternoon. Patient would continue to benefit from skilled therapy at this time. P. Continue POC.
--- NOTE | 2016-06-10 16:58 | PT.PROG ---
Progress Note Progress Note: S. Patient stated that she is feeling good this afternoon. O. Patient ambulated 175 feet to the therapy gym where she had heat and performed exercises in the form of; heel slides, quad sets, ankle pumps, short arc quads, sit to stands, box step ups (#2 and #3 box) all x 10. Patient used the nu-step x 10 minutes then ambulated 175 feet back to her room where she was left in bed with alarm and call light. A. Patient tolerated therapy very well again today, she was able to perform transfers much easier this afternoon. P. continue POC until Discharge.
[2016-06-11] MEDS: LEVOTHYROXINE 150 MCG PO SCH (05:46)
[2016-06-11 06:31] LABS: HEMATOCRIT 29.6 % (37.0-47.0); HEMOGLOBIN 9.6 g/dL (12.0-16.0); MEAN CORPUSCULAR HEMOGLOBIN 29.3 PG (27-31); MEAN CORPUSCULAR HGB CONC 32.4 g/dL (33-37); MEAN PLATELET VOLUME 10.3 FL (7.4-12.2); RDW COEFFICIENT OF VARIATION 14.5 % (11.5-14.5); RED BLOOD COUNT 3.28 10^6/uL (4.20-5.40); WHITE BLOOD COUNT 5.54 10^3/uL (4.8-10.8)
[2016-06-11 06:42] LABS: BLOOD UREA NITROGEN 9 mg/dL (7-22); BUN/CREATININE RATIO 12.85 (6-20); CALCIUM 8.5 mg/dL (8.7-10.7); CHLORIDE 102 meq/L (98-112); CREATININE 0.7 mg/dL (0.50-1.20); EST GLOMERULAR FILTRATION > 60 (>60 ml/min/1.73m(2)); GLUCOSE 95 mg/dL (78-110); POTASSIUM 3.8 meq/L (3.8-5.2); SODIUM 137 meq/L (135-145)
[2016-06-11] MEDS: HYDROCHLOROTHIAZIDE 12.5 MG PO SCH (06:54)
[2016-06-11] MEDS: HYDROcodone-APAP 7.5 MG-325 MG TABLET PO PRN (07:24)
[2016-06-11 07:50] VITALS: RESP 18; TEMP 97.4
[2016-06-11] MEDS: DOCUSATE 100 MG CAPSULE PO SCH (08:14)
[2016-06-11] MEDS: Rivaroxaban Tab 10 MG TAB PO SCH (08:14)
--- NOTE | 2016-06-11 08:59 | DCSUMMARY ---
Hospitalization Summary Admit Date: 06/08/16 Discharge Date: 06/11/16 Hospital Course: Discharge diagnoses 1. Status post right total hip replacement 2. Hypertension 3. Hypothyroidism 4. Anemia secondary to postoperative blood loss, mild Hospital course This is a 66 years old female with medical history significant for history of hypertension, hypothyroidism who came into the hospital to have right hip replacement and was done by Dr. Nichols, the hospitalist service were consulted for management of medical issues. Her post operative course was uneventful, she did have mild anemia postsurgery she did not need blood transfusion. She did well with physical therapy. I saw her on the day of discharge she was feeling fine there was no complaint, she said she was ready to be discharged home and she was cleared from physical therapy. Her exam was unremarkable. We discharge her home. Dr. Nichols did write already for pain medication and Xarelto for DVT prophylaxis. Patient will follow-up with him on the . Laboratory Results 06/08/16 06/08/16 06/09/16 Range/Units 13:58 17:35 05:49 WBC 9.26 4.55 L (4.8-10.8) 10^3/uL RBC 3.72 L 3.30 L (4.20-5.40) 10^6/uL Hgb 10.7 L 9.4 L (12.0-16.0) g/dL Hct 33.4 L 29.7 L (37.0-47.0) % MCV 89.8 90.0 (81-99) FL MCH 28.8 28.5 (27-31) PG MCHC 32.0 L 31.6 L (33-37) g/dL RDW Std Deviation 46.2 46.5 (39-50) fL RDW Coeff of Emmy 14.5 14.6 H (11.5-14.5) % Plt Count 185 160 (140-350) 10*3/uL MPV 10.0 10.5 (7.4-12.2) FL Immature Gran % (Auto) 0.3 0 (0-5) % Neut % (Auto) 85.0 H 62.8 (50-80) % Lymph % (Auto) 6.7 L 21.1 (10-50) % [place] % (Auto) 7.8 15.2 H (5-15) % Eos % (Auto) 0 0.7 (0-8) % Baso % (Auto) 0.2 0.2 (0-1) % Immature Gran # (Auto) 0.03 0 10*3/UL Neut # (Auto) 7.87 2.86 10*3/UL Lymph # (Auto) 0.62 0.96 10*3/uL [place] # (Auto) 0.72 0.69 (0.3-0.8) 10*3/UL Eos # (Auto) 0 0.03 10*3/UL Baso # (Auto) 0.02 0.01 10*3/UL WBC Morphology Comment Normal morphology Normal morphology (NORM) Plt Morphology Comment Normal morphology Normal morphology (NORM) RBC Morph Comment Normal morphology Normal morphology (NORM) Sodium 139 136 (135-145) meq/L Potassium 4.0 4.0 (3.8-5.2) meq/L Chloride 104 103 (98-112) meq/L Carbon Dioxide 26 27 (23-33) meq/L Anion Gap 9 6 (5-20) BUN 14 11 (7-22) mg/dL Creatinine 0.6 0.6 (0.50-1.20) mg/dL Estimated GFR > 60 > 60 (>60 ml/min/1.73m(2)) BUN/Creatinine Ratio 23.33 H 18.33 (6-20) Glucose 115 H 89 (78-110) mg/dL Calculated Osmolality 289.0 279.0 (267-292) mOsm/kg Calcium 8.5 L 8.1 L (8.7-10.7) mg/dL Total Bilirubin 0.8 0.8 (0.3-1.2) mg/dL AST 49 H 32 (8-39) IU/L ALT 40 35 (9-52) IU/L Alkaline Phosphatase 71 55 (38-126) IU/L Troponin I < 0.012 < 0.012 (< 0.040) ng/mL Total Protein 5.8 L 5.3 L (6.1-8.0) g/dL Albumin 3.3 L 2.8 L (3.5-4.8) g/dL Globulin 2.5 2.5 (2.50-4.10) g/dL Albumin/Globulin Ratio 1.30 1.10 L (1.3-2.0) mg/g 06/10/16 06/11/16 Range/Units 05:54 05:54 WBC 6.23 5.54 (4.8-10.8) 10^3/uL RBC 3.61 L 3.28 L (4.20-5.40) 10^6/uL Hgb 10.5 L 9.6 L (12.0-16.0) g/dL Hct 32.4 L 29.6 L (37.0-47.0) % MCV 89.8 90.2 (81-99) FL MCH 29.1 29.3 (27-31) PG MCHC 32.4 L 32.4 L (33-37) g/dL RDW Std Deviation 46.8 46.1 (39-50) fL RDW Coeff of Emmy 14.7 H 14.5 (11.5-14.5) % Plt Count 203 186 (140-350) 10*3/uL MPV 10.3 10.3 (7.4-12.2) FL Immature Gran % (Auto) (0-5) % Neut % (Auto) (50-80) % Lymph % (Auto) (10-50) % [place] % (Auto) (5-15) % Eos % (Auto) (0-8) % Baso % (Auto) (0-1) % Immature Gran # (Auto) 10*3/UL Neut # (Auto) 10*3/UL Lymph # (Auto) 10*3/uL [place] # (Auto) (0.3-0.8) 10*3/UL Eos # (Auto) 10*3/UL Baso # (Auto) 10*3/UL WBC Morphology Comment (NORM) Plt Morphology Comment (NORM) RBC Morph Comment (NORM) Sodium 139 137 (135-145) meq/L Potassium 3.8 3.8 (3.8-5.2) meq/L Chloride 103 102 (98-112) meq/L Carbon Dioxide 28 28 (23-33) meq/L Anion Gap 8 7 (5-20) BUN 7 9 (7-22) mg/dL Creatinine 0.7 0.7 (0.50-1.20) mg/dL Estimated GFR > 60 > 60 (>60 ml/min/1.73m(2)) BUN/Creatinine Ratio 10.00 12.85 (6-20) Glucose 98 95 (78-110) mg/dL Calculated Osmolality 285.0 282.0 (267-292) mOsm/kg Calcium 8.9 8.5 L (8.7-10.7) mg/dL Total Bilirubin (0.3-1.2) mg/dL AST (8-39) IU/L ALT (9-52) IU/L Alkaline Phosphatase (38-126) IU/L Troponin I (< 0.040) ng/mL Total Protein (6.1-8.0) g/dL Albumin (3.5-4.8) g/dL Globulin (2.50-4.10) g/dL Albumin/Globulin Ratio (1.3-2.0) mg/g Discharge instruction Diet regular Activity as tolerated and per Dr. Nichols recommendations Medications Home Medications Medication Instructions Recorded Confirmed Type Levothyroxine Sodium 1 tab PO DAILY tab 04/19/16 06/08/16 History Hydrochlorothiazide 1 cap PO DAILY cap 06/07/16 06/08/16 History HYDROcodone/APAP 7.5/325 Tab 1 - 2 tab PO Q4H PRN #60 tab 06/10/16 Rx [[place] 7.5/325 Tab] Rivaroxaban [Xarelto] 10 mg PO DAILY #32 tab 06/10/16 Rx Follow-up with her primary in 1-[address] Nichols as scheduled Condition at discharge was stable for discharge Exam - Vitals Vital Signs: Vital Signs Temperature 97.4 F Temperature Source Temporal Artery Scan Pulse Rate [Apical] 82 Pulse Rate [Pulse Oximeter] 93 Pulse Rate [Left] 73 Pulse Rate 63 Respiratory Rate 18 Blood Pressure [left] 134/63 Blood Pressure [Right Arm] 135/78 Blood Pressure 166/80 Pulse Ox 92 Oxygen Flow Rate 1 Oxygen Flow Rate 2 Oxygen Delivery Method Room Air Height 5 ft 9 in Weight 198 lb 6.4 oz - General General Appearance: POSITIVE: No Acute Distress, Cooperative - Head Head Exam: POSITIVE: Normal Inspection, Atraumatic - Eye Eye Exam: POSITIVE: Normal Appearance - ENT ENT Exam: POSITIVE: Normal Exam - Neck Neck Exam: POSITIVE: Normal Inspection - Respiratory Respiratory Exam: POSITIVE: Clear to Auscultation - Bilaterally - Cardiovascular Cardiovascular Exam: POSITIVE: RRR - GI/Abdominal GI/Abdominal Exam: POSITIVE: Normal Bowel Sounds, Non Tender, Non Distended, Soft - Rectal Rectal Exam: POSITIVE: Deferred - External Exam: POSITIVE: Deferred - Extremities Extremities Exam: POSITIVE: Normal Inspection, No Edema Present - Back Back Exam: POSITIVE: Normal Inspection - Neurological Neurological Exam: POSITIVE: Alert, Oriented x 3, CN II-XII Intact - Psychiatric Psychiatric Exam: POSITIVE: Normal Affect - Integumentary Integumentary Exam: POSITIVE: Normal Color
--- NOTE | 2016-06-14 16:26 | PTI REPORT ---
Thank you for the referral of La Bravo. She was seen on 06/08/16 for an inpatient evaluation status post right total hip replacement with an anterior approach. SUBJECTIVE: The patient is a 66-year-old female who underwent a right total hip replacement earlier this morning. The patient reports that she is doing fairly well since surgery. She reports 0/10 pain at this time and states that she has been able to move her right ankle and knee and doesn't have numbness down the right lower extremity. The patient states that she is from [place], [place] where she lives with her in a mobile home. The patient states that she does have five stairs into her home with a railing on the left side. PAST MEDICAL HISTORY: Past medical history can be found in the patient's medical record. OBJECTIVE FINDINGS: General observations: The patient is alert and oriented to setting upon PT arrival. The patient does have an IV, a catheter, and a hemo-vac in place. The patient is on one liter of oxygen. Vitals: The patient's blood pressure in a supine position was 142/89 and her oxygen saturation was at 95%. The patient's sitting blood pressure was 147/90 and her oxygen saturation was at 97%. The patient's standing blood pressure was 151/82 and her oxygen saturation was 96%. Pain: The patient reports a pain level of 0/10 on the verbal analog scale (0=no pain, 10=worst pain). Bed mobility: The patient was able to move from a supine to seated position with mod assist x1 to help maneuver lines and leads and also to help the right lower extremity. In a seated position the patient stated that she initially felt a little dizzy and lightheaded. After sitting for a couple of minutes, the patient stated that she felt better. Transfers: Once the patient was ready, she was instructed on how to properly stand up from the bed. The patient was able to perform the sit to stand transfer with min assist x1. Once initially standing the patient stated that she was fairly lightheaded and did not feel well as prior to therapy she had some nausea. The patient was able to stand approximately two minutes with hand hold assist x2 on standard walker. The patient was also instructed in how to properly move from a standing to seated position which she was able to do with contact guard assist x1 for safety. The patient sat edge of bed x5 minutes due to nausea. After five minutes of sitting edge of bed, the patient stated that she felt better. She did require mod assist x1 to maneuver lines and leads and to help lift her right lower extremity up into the bed when she moved from seated to supine position. The patient was able to independently perform bed mobility to scoot herself up in bed. ASSESSMENT: The patient has a good prognosis. Problem List: Pain in the right hip Decreased passive and active range of motion in the right hip Decreased strength in the right hip Short-Term Goals: To be met by discharge from inpatient: Patient will be able to transfer from bed to stand independently and safely. Patient will be able to ambulate at least 150 feet with standard walker and weight-bearing as tolerated on the right. Patient will be able to ascend and descend five stairs with standard walker and weight-bearing as tolerated on the right. Long-Term Goals: To be met following discharge from inpatient: Patient may be seen by outpatient physical therapy if deemed necessary upon discharge. TREATMENT PLAN: Patient will be seen B.I.D during the week and one time per day over the weekend as an inpatient to work on transfers, gait training, and stair training. INITIAL TREATMENT: Treatment today consisted of the initial evaluation followed by one unit of functional activity with the patient performing transfers and standing balance and seated edge of bed balance. The patient was left in bed with bed alarm set and call light within reach. KYA
--- NOTE | 2016-06-15 12:41 | OTI REPORT ---
Thank you for the referral of La Bravo. She was seen on 06/10/16 for an occupational therapy inpatient evaluation secondary to a right total hip arthroplasty with an anterior approach. SUBJECTIVE: The patient is a 66-year-old female who came in with a right total hip. The patient is from [place]. 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 The patient did state that her home has a bathtub and a walk in shower but she will probably be using her walk in shower. At this time the patient did deny the need for a shower seat. The patient reports already having a high rise toilet seat. The patient reports no previous joint surgeries. PAST MEDICAL HISTORY: Past medical history can be found in the patient's medical record. OBJECTIVE FINDINGS: Range of motion: The patient demonstrates good shoulder range of motion bilaterally. Strength: The patient demonstrates upper extremity strength of 5/5 with no pain. Bed mobility: The patient did complete bed mobility with independence. Activities of daily living: The patient did report that she has a sock aide and a performance consultant at home, so she did not want ours. She did report that she is able to complete lower extremity dressing and use the sock aide independently at home. Transfers: The patient was able to transfer from sit to stand with mod independence. Ambulation: We did use the front wheeled walker so that she can learn how to use it before taking it home tomorrow. The patient did very well with this. The patient was able to ambulate all the way down to therapy. ASSESSMENT: At this time the patient has completed all goals and we will discharge her from OT services at this time. TREATMENT PLAN: Patient will be discharged from OT services at this time. INITIAL TREATMENT: Treatment today consisted of the initial evaluation activities only. KYA
== END 2016-06-11 09:41 | disposition home or self-care (01) | DRG 470 ==
LOC: OPS 05:48 → MED/SURG 13:20
PROVIDERS: ADMIT Orthopaedic Surgery; ATTEND Orthopaedic Surgery
PROC: 0SR9039 Replacement of Right Hip Joint with Ceramic Synthetic Substitute, Cemented, Open Approach (ICD-10-PCS; principal; 2016-06-08 08:00)
DX: M16.11 Unilateral primary osteoarthritis, right hip (principal); D62 Acute posthemorrhagic anemia; I10 Essential (primary) hypertension; E03.9 Hypothyroidism, unspecified
CPT/HCPCS: 36415; 73502; 76001; 80048; 80053; 84484; 85025; 85027; 93005; 93010; 94150; 94761; 97110; 97116; 97161; 97165; 97530; A4216; J0690; J1580; J1644; J1885; J2001; J2250; J2270; J2405; J3010; J3490; J7030; J7040; J7050; J7120; S0020

== ENCOUNTER → 2016-06-21 | Outpatient (CLI) | payer OTHER ==
--- NOTE | 2016-06-21 16:24 | DI ---
AP PELVIS and RIGHT HIP, 06/21/2016 10:53 AM: Clinical History: History of right total hip replacement for arthritic disease. Previous Exam: 06/08/2016. The skin lily are still present, but the drain tube has been removed. The bony structures of the p gonzalez are normal. 2 views of the right hip show the patient be status post total hip replacement. The prosthetic device articulates normally. Readin. Status post total right hip replacement. The prosthetic device articulates normally. 2. The AP pelvis view is unremarkable.
== END ==
LOC: ORTHO 11:10
PROVIDERS: ATTEND Orthopaedic Surgery
DX: Z47.1 Aftercare following joint replacement surgery (principal); Z96.641 Presence of right artificial hip joint
CPT/HCPCS: 73502

== ENCOUNTER → 2016-09-13 | Outpatient (CLI) | payer OTHER ==
--- NOTE | 2016-09-13 15:24 | DI ---
XR HIP COMPLETE MIN 2VW U/L,09/13/2016 10:52 AM: Clinical History: Status post total replacement of the right hip. Previous Exam: June 21, 2016 Findings: AP view of the pelvis as well as AP views of the right hip and crosstable lateral view of the right h ip, and demonstrate postsurgical changes consistent with a right total hip arthroplasty. There is also stable left hip dysplasia. There is no fracture nor evidence of hardware loosening. Diffuse degenerative changes of the lumbar spine are seen. A nonobstructive bowel gas pattern is also noted. A few phleboliths are seen. Impression: Status post right total hip arthroplasty. Stable left hip dysplasia.
== END ==
LOC: ORTHO 11:06
PROVIDERS: ATTEND Orthopaedic Surgery
DX: Z96.641 Presence of right artificial hip joint (principal); Z98.890 Other specified postprocedural states
CPT/HCPCS: 73502